=== PATIENT | female | born 1980 | race Native Hawaiian/Other Pacific Islander ===

== ENCOUNTER 2017-05-28 07:12 | Inpatient (IN) | payer OTHER ==
[2017-05-28 07:22] VITALS: BMI 25.5
[2017-05-28] MEDS: Lactated Ringer's 1,000 ML IV SCH ×2 (07:30→15:00)
--- NOTE | 2017-05-28 07:58 | OBADHP ---
Datetime: 05/28/2017 07:49 IP Adm Impression Other: Decreased FM/ early labor Admit Comment, IP Provider: since in early labor and decreased FM will admit and agument Pt understa nds and agreed Extremities - PN: Normal Abdomen - PN: Abnormal Breast - PN: Normal Lungs - PN: Normal Thyroid - PN: Normal Neurologic - PN: Normal HEENT - PN: Normal General - PN: Normal Presentation-Admit: Cephalic Membranes, Provider: Intact Contraction Comments Provider: irreg Comments, ACOG Physical Exam: Abd gravid NT Ext no calf tenderness Gestation - Est Wks by US: 40 w 2d Pool Provider: Negative IP Hx Assessment: The History has been Reviewed and is Current IP Chief Complaint: Uterine contractions; Decreased movement NICHD Variability Prov Fetus A: Minimal - Undetectable to <5bpm NICHD Decel Fetus A IP Provider: None Dilatation, Provider: 1cm Effacement, Provider: 60% Station, Provider: -1 Genitourinary Exam: Normal DTRs - PN: Normal EGA AdmitDate IP: 40.2 IP Adm Impression: Term, intrauterine IP Admit Plan: Admit to unit; Initiate labor augmentation protocol
[2017-05-28 08:29] LABS: BASO % 0.6 % (0.0-2.0); EOS # 0.2 K/uL (0.0-0.7); EOS % 2.8 % (0.0-4.0); HEMOGLOBIN 11.4 g/dL (12.0-16.0); LYMPH # 1.5 K/uL (1.0-4.3); LYMPH % 23.8 % (20.0-40.0); MEAN CORPUSCULAR HEMOGLOBIN 31.7 pg (27.0-31.0); MEAN CORPUSCULAR HGB CONC 34.1 g/dL (33.0-37.0); MONO # 0.6 K/uL (0.0-0.8); MONO % 8.7 % (0.0-10.0); NEUT # 4.2 K/uL (1.8-7.0); NEUT % 64.1 % (50.0-75.0); NRBC % 0.1 % (0.0-0.0); RBC 3.6 Mil/uL (3.80-5.20); RED CELL DISTRIBUTION WIDTH 14.5 % (11.5-14.5); WHITE BLOOD COUNT 6.5 K/uL (4.8-10.8)
[2017-05-29] MEDS ORDERED: Lactated Ringer's 1,000 ML IV SCH (04:00)
[2017-05-29] MEDS ORDERED: Fentanyl/Bupivacaine HCl 250 ML EPI ONE (04:47)
[2017-05-29] MEDS ORDERED: Oxytocin 30 UNITS in Sodium Chloride 0.9% 500 ML IV ONE (09:57)
--- NOTE | 2017-05-29 12:06 | OBDS ---
DELIVERY PERSONNEL Delivery Doctor: Usha Ng MD Screed Operator: Cecilia-Johnson, Aysha RN MATERNAL INFORMATION Delivery Anesthesia: Epidural Medications in Delivery: pitocin Estimated Blood Loss (ml): 250 Placenta Cultured: No Maternal Complications: None Provider Comments: Delivered a living baby girl appears term cried spontanously Peds called for dece ls while final pushing 9/9, AF clear Placenta complete and intact Episiotomy repaired as above, no complications Uterus contracted well, rectal done no defects Tolerated procedure well. LABOR SUMMARY EDC: 05/26/2017 00:00 No. Babies in Womb: 1 Attempted: No Labor Anesthesia: Epidural LABOR INFORMATION Reason for Induction: Not Applicable Cervical Ripening Agents: Cervidil Group B Beta Strep: Negative Antibiotics # of Doses: n/a Steroids Given: None Reason Steroids Not Administered: Not Applicable MEMBRANES Membranes Rupture Method: Spontaneous Amniotic Fluid Color: Clear Amniotic Fluid Amount: Small Amniotic Fluid Odor: Normal STAGES OF LABOR Stage 3 hrs: 0 Stage 3 min: 3 VAGINAL DELIVERY Episiotomy: Median Laceration Extension: First Degree Laceration Type: Perineal Laceration Repair: Yes Laceration Repair Note: episiotomy done and repaired with 2-0 chromic suture interrupted for deep ti ssue and continuously for vagina and perineum no complications Initial Vag Sponge Count: 10 Final Vag Sponge Count: 10 Initial Vag Sharps Count: 1 Final Vag Sharps Count: 1 Sponge Count Correct: Yes Sharps Count Correct: Yes Count Comment: labs 5. count correct and confirmed by rn CSECTION DELIVERY Primary Indication: N/A Secondary Indication: N/A CSection Incision: N/A Uterine Closure: N/A BABY A INFORMATION Delivery Date/Time: 05/29/2017 11:37 Method of Delivery: Vaginal Born in Route : No : N/A Forceps: N/A Vacuum Extraction: N/A Shoulder Dystocia : No SHOULDER DYSTOCIA BABY A Delivery Date/Time: 05/29/2017 11:37 PRESENTATION/POSITION BABY A Presentation: Cephalic Cephalic Presentation: Vertex Breech Presentation: N/A PLACENTA INFORMATION BABY A Placenta Delivery Time : 05/29/2017 11:40 Placenta Method of Delivery: Spontaneous Placenta Status: Delivered SCORES BABY A Heart Rate 1 min: >100 bpm Resp Effort 1 min: Good Cry Reflex Irritability 1 min: Cough or Sneeze or Pulls Away Muscle Tone 1 min: Active Motion Color 1 min: Body [place], Extremities Blue Resuscitation Effort 1 min: Tactile Stimulation SCORE 1 MIN: 9 Heart Rate 5 min: >100 bpm Resp Effort 5 min: Good Cry Reflex Irritability 5 min: Cough or Sneeze or Pulls Away Muscle Tone 5 min: Active Motion Color 5 min: Body [place], Extremities Blue Resuscitation Effort 5 min: Tactile Stimulation SCORE 5 MIN: 9 INFANT INFORMATION BABY A Gestational Age at Delivery: 40.3 Gestational Status: Term Infant Outcome : Liveborn Condition : Stable Sex: Female IDENTIFICATION/MEDS BABY A ID Band Number: [id number] ID Band Location: Left Leg; Left Arm WEIGHT/LENGTH BABY A Infant Birthweight (gms): 3070 Weight (lb): 6 Infant Weight (oz): 12 CORD INFORMATION BABY A No. Cord Vessels: 3 Nuchal Cord : N/A Cord Blood Taken: Yes Suction: Mouth; Nose ASSESSMENT BABY A Complications: None Physical Findings at Delivery: Within Normal Limits Infant Respirations: Appears Normal [employer]/ALS Called : No Care By: Dr. Chirinos Transferred To: [facility]
[2017-05-29] MEDS ORDERED: Benzocaine/Menthol SPRAY TOP PRN ×2 (12:08→14:01)
[2017-05-29] MEDS ORDERED: Oxycodone/Acetaminophen 5/325 mg Tab PO PRN ×2 (12:08→14:01)
[2017-05-30 07:11] LABS: HEMOGLOBIN 9.4 g/dL (12.0-16.0); MEAN CELL VOLUME 94.5 fl (81.0-99.0); MEAN CORPUSCULAR HEMOGLOBIN 30.6 pg (27.0-31.0); MEAN CORPUSCULAR HGB CONC 32.3 g/dL (33.0-37.0); RBC 3.09 Mil/uL (3.80-5.20); RED CELL DISTRIBUTION WIDTH 14.7 % (11.5-14.5); WHITE BLOOD COUNT 14.1 K/uL (4.8-10.8)
--- NOTE | 2017-05-30 12:10 | OBPPN ---
Datetime: 05/30/2017 12:06 PP Pain Prov: Within normal limits PP Nausea Prov: Denies PP Flatus Prov: Yes PP Breasts Prov: Normal PP Heart Prov: Normal PP Lungs Prov: Normal PP Abdomen/Uterus Prov: Normal PP Lochia Prov: Normal PP Vulva/Perineum Prov: Normal PP CVA Tenderness Prov: Normal PP Extremities Prov: Normal PP Progress Prov: Normal PP Impression Prov: Normal progression PP Plan Prov: Continue present management PP Progress Note Prov: H/H 02/21 A: S/P day 1 Anemia: asymptomatic PLAN: Anticipate discharge in AM
--- NOTE | 2017-05-31 11:01 | OBPPN ---
Datetime: 05/31/2017 10:57 PP Pain Prov: Within normal limits PP Pain Prov comment: no SOB chest pains or leg pains PP Nausea Prov: Denies PP Flatus Prov: Yes PP Nausea Prov comment: voiding well PP Breasts Prov: Normal PP Heart Prov: Normal PP Lungs Prov: Normal PP Abdomen/Uterus Prov: Abnormal PP Lochia Prov: Normal PP Vulva/Perineum Prov: Abnormal PP CVA Tenderness Prov: Normal PP Extremities Prov: Normal PP C/S Incision Prov: Not Applicable PP Progress Prov: Normal PP Comments Phys Exam Prov: breast NE, NT, abd soft not distended fundus firm below the umb NT Perin eum repaired Ext no calf tenderness PP Impression Prov: Normal progression PP Plan Prov: Discharge PP Progress Note Prov: D/C home with instructions and follow up with office 4-6 wks IP PP Procedures: None Vital Signs Provider PP: Reviewed
--- NOTE | 2017-05-31 11:04 | OBDCSUM ---
Datetime: 05/31/2017 11:00 Discharged to, Provider: Home Follow up at, Provider: Dr lindsay Disch Instr Activity: Bedrest; May be up to bathroom; May be up for meals; May Shower Disch Instr Diet: Regular Discharge Instructions, Provider: Routine instructions given Discharge Diagnosis, Provider: Term Delivered Discharge Time: 05/31/2017 11:00 Follow up in weeks, Provider: 4-6 wks Disch Referrals: None Contraception discussed, Prov: Yes Disch Activity Restrictions: No exercising; No lifting; No driving; Minimize walking; Minimize stair -climbing; No sexual activity; Nothing in vagina - [place], tampons, douche Discharge Comment, Provider: continue PNC vit and iron Contraception after Delivery: Undecided
[2017-05-31 21:55] VITALS: BP 106/60; PULSE 66; RESP 16; TEMP 99.2; O2SAT 100
== END 2017-05-31 17:45 | disposition home or self-care (01) | DRG 775 ==
LOC: H.EROB2 07:12 → H.L&D 07:13 → H.EROB2 07:25 → H.OB/GYN 05-29 13:45
PROVIDERS: ADMIT Specialist; ATTEND Specialist
PROC: 10E0XZZ Delivery of Products of Conception, External Approach (ICD-10-PCS; principal; 2017-05-28)
PROC: 0HQ9XZZ Repair Perineum Skin, External Approach (ICD-10-PCS; 2017-05-29)
PROC: 4A1HXCZ Monitoring of Products of Conception, Cardiac Rate, External Approach (ICD-10-PCS; 2017-05-29)
DX: O36.8130 Decreased fetal movements, third trimester, not applicable or unspecified (principal); O48.0 Post-term pregnancy; Z37.0 Single live birth; O70.0 First degree perineal laceration during delivery; Z3A.40 40 weeks gestation of pregnancy